=== PATIENT | female | born 1980 | race Caucasian/White ===

== ENCOUNTER 2016-10-08 00:43 | Emergency (ER) | payer OTHER ==
[~2016-10-08 00:43] MED LIST: CELEXA PO
== END 2016-10-08 01:26 | disposition left against medical advice (07) ==
LOC: SED 00:43
DX: Z53.21 Procedure and treatment not carried out due to patient leaving prior to being seen by health care provider (principal)

== ENCOUNTER 2016-12-05 22:10 | Emergency (ER) | payer OTHER ==
[~2016-12-05] VITALS: Ht 170.2 cm; Wt 85.7 kg
[2016-12-05] MEDS ORDERED: GABAPENTIN600 MG PO (22:42)
[2016-12-05] MEDS ORDERED: SUBOXONE 8 MG-1 EAC1 SL (22:42)
== END 2016-12-05 23:34 | disposition home or self-care (01) ==
LOC: SED 22:10
DX: Z71.1 Person with feared health complaint in whom no diagnosis is made (principal); F17.200 Nicotine dependence, unspecified, uncomplicated
CPT/HCPCS: 99283